=== PATIENT | female | born 1950 | race Caucasian/White ===

== ENCOUNTER 2023-11-08 08:15 | Outpatient (CLI) | payer OTHER ==
[~2023-11-08 08:15] MED LIST: DIOVAN160 M1; DIOVAN160 M1 PO; SYNTHROID100 MCG PO; SYNTHROID150 MCG; TRENTAL; ULTRACET PO
== END 2023-11-08 08:16 | disposition home or self-care (01) ==
LOC: NUCLEAR 08:15
PROVIDERS: ATTEND Thoracic Surgery (Cardiothoracic Vascular Surgery)
DX: I87.2 Venous insufficiency (chronic) (peripheral) (principal)

== ENCOUNTER 2023-11-11 10:16 | Outpatient (CLI) | payer OTHER | END 2023-11-11 10:18 | disposition home or self-care (01) | LOC: NUCLEAR 10:16 | PROVIDERS: ATTEND Thoracic Surgery (Cardiothoracic Vascular Surgery) | DX: I73.9 Peripheral vascular disease, unspecified (principal) ==